=== PATIENT | female | born 1970 | race Caucasian/White ===

== ENCOUNTER 2020-09-22 15:22 | Emergency (ER) | payer MEDICAID ==
[~2020-09-22] VITALS: Ht 167.6 cm; Wt 69.9 kg
[2020-09-22 15:32] VITALS: Ht 167.6 cm; Wt 69.9 kg
[2020-09-22 16:29] VITALS: BP 135/77
[2020-09-22] MEDS ORDERED: IBU600 M2 PO (16:39)
[2020-09-22] MEDS ORDERED: PYRIDIUM100 MG PO (16:39)
[2020-09-22] MEDS ORDERED: MACRODANTIN100 M1 PO (16:39)
== END 2020-09-22 16:54 | disposition home or self-care (01) ==
LOC: ED 15:22
DX: N39.0 Urinary tract infection, site not specified (principal); E11.65 Type 2 diabetes mellitus with hyperglycemia; I10 Essential (primary) hypertension; Z90.710 Acquired absence of both cervix and uterus
CPT/HCPCS: 82962